=== PATIENT | female | born 1960 | race Caucasian/White ===

== ENCOUNTER 2016-07-21 10:59 | Day surgery (SDC) | payer OTHER ==
[~2016-07-21 10:59] MED LIST: PROPOFOL INJ 200 MG/20 ML VIAL IV ONE
--- NOTE | 2016-07-21 13:24 | Operative Report ---
Operative Report DATE OF SURGERY: 07/21/16 Operative Report: The risks, benefits and alternatives of the procedure including risks of bleeding, perforation requiring surgery are explained to the patient in detail and informed consent is obtained. Patient is taken back to the endoscopy suite. She is placed in a left lateral decubital position. Timeout is called. A rectal examination is done which did not reveal any masses, tears or fissures. An Olympus video scope was inserted into the patient's rectum. The scope was then gradually advanced all the way to the cecum. Cecum was identified by the usual anatomical landmarks including the ileocecal valve as well as the appendiceal office. Prep is good. Photo documentations obtained. The scope was then sequentially pulled back via the various segments of the colon including the ascending colon, hepatic flexure, transverse colon, splenic flexure, descending colon and finally into the rectosigmoid colon. Retroflexion maneuvers performed. Following this the patient's stretcher was turned around and an EGD performed. The risks benefits and alternatives of the procedure explained to the patient in detail and informed consent is obtained that GIF Olympus video scope was inserted into the patient's mouth and hypopharynx the esophagus is identified intubated and insufflated the scope was then advanced through the esophagus stomach and duodenum retroflexion maneuver is done the esophagus stomach and first and second portions of the duodenum examined PREOPERATIVE DIAGNOSIS: Epigastric pain. Nausea vomiting. Weight loss. Personal history of colon polyp POSTOPERATIVE DIAGNOSIS: Mild right-sided inflammation status post biopsy. Gastritis status post biopsy rule out Helicobacter pylori. Hiatal hernia OPERATION: Endoscopy with biopsy. Colonoscopy with biopsy SURGEON: PRISCILLA SALAZAR ANESTHESIA: LMAC TISSUE REMOVED OR ALTERED: Gastric specimens obtained rule out Helicobacter pylori. Right-sided colon specimens obtained rule out lymphocytic, microscopic , collagenous colitis COMPLICATIONS: None. ESTIMATED BLOOD LOSS: none. INTRAOPERATIVE FINDINGS: As described above. PROCEDURE: Patient tolerated the procedure well. No immediate postprocedure complications are noted. Patient is discharged in good condition. Discharge date 07/21/2016. Discharge diet: Regular. Discharge activity: Regular. We'll await on biopsies. If these are negative will have to consider other etiology she may need a CT scan of the abdomen and chest. She does have a 2-3 week follow-up to discuss findings. is instructed to call the office or proceed to the emergency room if there are any further problems or questions.
[2016-07-21 13:25] VITALS: BP 104/67
== END 2016-07-21 13:15 | disposition home or self-care (01) ==
LOC: END 10:59
PROVIDERS: ATTEND Internal Medicine Gastroenterology
PROC: 0DBF8ZX Excision of Right Large Intestine, Via Natural or Artificial Opening Endoscopic, Diagnostic (ICD-10-PCS; 2016-07-21)
PROC: 0DB58ZX Excision of Esophagus, Via Natural or Artificial Opening Endoscopic, Diagnostic (ICD-10-PCS; principal; 2016-07-21 14:00)
PROC: 0DB68ZX Excision of Stomach, Via Natural or Artificial Opening Endoscopic, Diagnostic (ICD-10-PCS; 2016-07-21 14:00)
DX: K44.9 Diaphragmatic hernia without obstruction or gangrene (principal); K52.9 Noninfective gastroenteritis and colitis, unspecified; F17.210 Nicotine dependence, cigarettes, uncomplicated; K29.50 Unspecified chronic gastritis without bleeding; Z86.010 Personal history of colon polyps; E83.51 Hypocalcemia; K76.0 Fatty (change of) liver, not elsewhere classified; Z79.899 Other long term (current) drug therapy
CPT/HCPCS: 43239; 45380; 88342 ×2; 88305 ×2; J2704; 740